=== PATIENT | female | born 1975 | race Caucasian/White ===

== ENCOUNTER 2019-01-11 05:40 | Day surgery (SDC) | payer OTHER ==
[~2019-01-11] VITALS: Ht 157.5 cm; Wt 60.8 kg
--- NOTE | ~2019-01-11 | OR ---
[facility] [address], [place] [address] Draft DATE OF OPERATION: 01/11/2019 SURGEON: Shane Rivera DO PREOPERATIVE DIAGNOSES: 1. ELLIE 2/3. 2. Tobacco use disorder. POSTOPERATIVE DIAGNOSES: 1. ELLIE 2/3. 2. Nabothian cyst. 3. Tobacco use disorder. PROCEDURES PERFORMED: Cold knife conization with ECC. ASSISTENT: Nikita Rush MD ANESTHESIA: MAC. ESTIMATED BLOOD LOSS: 50 mL. SPECIMEN: 1. Cone biopsy of the cervix with stitch at 12 o'clock. 2. Endocervical curettage. FINDINGS: Normal external genitalia. Normal vagina with slight descensus of the uterus. The cervix has two nabothian cysts at 6 and 5 o'clock. These are smooth and benign appearing and prior colposcopy was reviewed and these appeared to be unchanged. There is also cervical dysplasia noted consistent with colposcopic findings. Hemostasis at the end the procedure. COMPLICATIONS: None. INDICATIONS: PATIENT NAME: KIEL CRAWFORD OPERATIVE REPORT DATE OF : 79 REPORT #: [id number] PHYSICIAN: SHANE RIVERA DO PCP: [facility] REPORT IS CONFIDENTIAL AND NOT TO BE RELEASED WITHOUT AUTHORIZATION [facility] [address], [place] [address] Draft Ms. Crawford is a pleasant 43-year-old female with a history of abnormal Paps. She underwent colposcopy by Dr. Mercado that demonstrated nabothian cyst as well as cervical dysplasia that was biopsied at 12 to 3 o'clock consistent with ELLIE 2/3. Endocervical curettage was also positive for high-grade dysplasia. The patient continues to smoke cigarettes. She was consented for cold knife conization of the cervix. Risks, benefits, and alternatives were discussed in detail with the patient. The patient understands and wished to proceed with the procedure. TECHNIQUE: The patient was taken to the operating room, where a time-out was performed to confirm correct patient and correct procedure. MAC anesthesia was adequately established. The patient was then prepped and draped in the dorsal lithotomy position with feet in Yellofin stirrups. ICPs were on and running. No preop antibiotics or heparin were indicated. The bladder was drained and a weighted speculum was placed in the vagina. The anterior lip of the cervix was grasped with Allis clamps and evaluated. The cervix has 2 masses consistent with nabothian cyst, one at 5 o'clock, one at 6 o'clock. Prior colposcopic record was requested and reviewed intraoperatively. Dr. Mercado describes nabothian cyst that per description have not changed. A paracervical block was then performed using 0.25% Marcaine with epinephrine injected in four quadrants. Acetic acid was applied and cervical dysplasia was noted with punctation and mosaicism. Decision was made to proceed with cold knife cone. A Hegar dilator was advanced through the cervical os and used to define the apex of the cone. A #11 blade was used to perform the conization with careful attention to excise all gross dysplasia and the nabothian cyst. The cone biopsy was then handed off and a stitch was placed at 12 o'clock. The biopsy site was then made hemostatic with ball tip cautery and Monsel's solution. The wound was then packed with Gelfoam and stay sutures that were placed at 3 o'clock and 9 o'clock at the beginning of the procedure of 0 chromic were then tied together. Good hemostasis was appreciated and the patient was taken to PACU in good and stable condition. Sponge, needle, and instrument count was correct x2 at the end the procedure. Dr. Rush was present, participated in all portions of the procedure. Shane Rivera DO JBenitoW/MODL /[id number] PATIENT NAME: KIEL CRAWFORD OPERATIVE REPORT DATE OF : 79 REPORT #: [id number] PHYSICIAN: SHANE RIVERA DO PCP: [facility] REPORT IS CONFIDENTIAL AND NOT TO BE RELEASED WITHOUT AUTHORIZATION [facility] [address] [place] [address] [place] [address] Draft Copies: ~ PATIENT NAME: KIEL CRAWFORD OPERATIVE REPORT DATE OF : 79 REPORT #: [id number] PHYSICIAN: SHANE RIVERA DO PCP: [facility] REPORT IS CONFIDENTIAL AND NOT TO BE RELEASED WITHOUT AUTHORIZATION
[~2019-01-11 05:40] MED LIST: VITAMIN B122500 MCG PO; VITAMIN D22000 UNIT PO
[2019-01-11] MEDS ORDERED: I-PRIN200 MG PO (05:50)
--- NOTE | 2019-01-11 08:28 | NUR ---
01/11/19 0828 Marily Wood 0822 PATIENT ARRIVES TO PACU AWAKE BUT DROWSY AND CONFUSED. RESP EVEN AND UNLABORED, ROOM AIR SATS 100%. DENIES PAIN OR NAUSEA.
== END 2019-01-11 09:15 | disposition home or self-care (01) ==
LOC: OPS 05:40 → DS 05:40 → OPS 06:45 → DS 06:45 → OPS 09:15
PROVIDERS: Obstetrics & Gynecology
PROC: 0UBC7ZX Excision of Cervix, Via Natural or Artificial Opening, Diagnostic (ICD-10-PCS; principal; 2019-01-11 06:45)
DX: D06.9 Carcinoma in situ of cervix, unspecified (principal); N88.8 Other specified noninflammatory disorders of cervix uteri; F17.210 Nicotine dependence, cigarettes, uncomplicated; Z80.41 Family history of malignant neoplasm of ovary; Z79.899 Other long term (current) drug therapy
CPT/HCPCS: 00940; 88305; 88307; 88309; 99406; J1100; J1885; J2250; J2405; J2704; J3010; J3475; J7120